=== PATIENT | female | born 1980 ===

== ENCOUNTER 2025-04-29 06:49 | Emergency (ER) | payer SELFPAY ==
--- NOTE | 2025-04-29 06:45 | DI.RAD_ITS ---
Exam(s) XR KNEE LT 4V AP,LAT,KWESI,PAT EXAM: XR KNEE LT 4V AP,LAT,KWESI,PAT CLINICAL HISTORY: L hip/knee pain after fall. TECHNIQUE: 2D digital imaging was performed. COMPARISON: No exams were available for comparison FINDINGS: Four views There is a significant fracture of the lateral tibial plateau with significant displacement/depression. Proximal fibula appears intact and there are no obvious fractures of the distal femur and femoral condyles. Patella appears intact and nondisplaced. Joint effusion-hemarthrosis IMPRESSION: Displaced tibial plateau fracture. Knee effusion-hemarthrosis DATA REPOSITORY: RADIATION DOSE DELIVERED:
--- NOTE | 2025-04-29 06:45 | DI.RAD_ITS ---
Exam(s) XR PELVIS AP EXAM: XR PELVIS AP CLINICAL HISTORY: L hip/knee pain after fall. TECHNIQUE: 2D digital imaging was performed. COMPARISON: No exams were available for comparison FINDINGS: Single AP view of the pelvis-hips No evidence of pelvic nor hip fractures. No dislocation. Bone density normal. No osseous lesions. IMPRESSION: No acute osseous findings. DATA REPOSITORY: RADIATION DOSE DELIVERED:
--- NOTE | 2025-04-29 06:45 | DI.RAD_ITS ---
Exam(s) XR TIB/FIB LT EXAM: XR TIB/FIB LT CLINICAL HISTORY: L hip/knee pain after fall. TECHNIQUE: 2D digital imaging was performed. COMPARISON: No exams were available for comparison FINDINGS: Two views There is a tibial plateau fracture with displacement. There are no other fractures evident in the tibia and fibula. No osseous lesions. IMPRESSION: Tibial plateau fracture DATA REPOSITORY: RADIATION DOSE DELIVERED:
--- NOTE | 2025-04-29 06:45 | DI.RAD_ITS ---
Exam(s) XR FEMUR LT EXAM: XR FEMUR LT CLINICAL HISTORY: L hip/knee pain after fall. TECHNIQUE: 2D digital imaging was performed. COMPARISON: No exams were available for comparison FINDINGS: 3 views No evidence of hip nor femur fracture. However, there is a knee joint effusion and there appears to be a tibial plateau fracture seen on the lateral view IMPRESSION: Fractured in the level appearing to be tibial plateau. Knee joint effusion-hemarthrosis. DATA REPOSITORY: RADIATION DOSE DELIVERED:
[2025-04-29 06:49] VITALS: BP 164/109; PULSE 69; RESP 22; TEMP 36.1; O2SAT 100
--- NOTE | 2025-04-29 07:06 | W.ED.GENAD ---
Discharge Plan Discharge Details Chief Complaint: Fall/Non TraumaCriteria Clinical Impression: Fall, Injury of left knee ED Provider: Venkatesh Pak General Date/Time Provider Initiated Documentation: 04/29/25 06:56. HPI Narrative: 44-year-old -[place] female with a past medical history of a hysterectomy, hypertension, presents today via EMS for evaluation after a fall. 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 She was about 4 feet off the ground when she slipped, she hit a van's bumper on the way down with her left knee. She did not strike her head. She did not lose consciousness. She had immediate and severe pain in the left hip and the left knee. EMS was called, she was given 100 mcg of fentanyl, and 20 mg of ketamine without significant improvement of her symptoms. She denies previous injuries to the extremities in the past. No other complaints at this time. She denies numbness or tingling. She denies headache, neck pain, chest pain or abdominal pain. Related Data Allergies Allergy/AdvReac Type Severity Reaction Status Date / Time acetaminophen Allergy Unknown Hives Verified 04/29/25 06:59 General Stated Complaint: Fall/Non TraumaCriteria TRINI: 3 Exam Narrative Exam Narrative: 1.Const: Well-nourished, Well-developed, appearing stated age 2.Eyes: PERRL, no conjunctival injection, and symmetrical lids. 3.ENT: Atraumatic external nose and ears. Moist MM. Neck: Symmetric, trachea midline, No thyromegaly. There is no evidence of raccoon eyes, shelley sign, CSF rhinorrhea, mastoid tenderness, cranial crepitus, exophthalmos, or hyphema. Patient demonstrates intact dentition with no signs of tooth avulsion or fracture, no signs of jaw deformity, no evidence of a LeFort's fracture, with an intact palate, nose and orbital region. There is no evidence of a nasal septal hematoma. No proptosis. Jaw closes symmetrically. Airway is clear. 4.CVS: Regular rate and rhythm, Normal s1 and s2. No murmurs, carotid bruits, rubs, or gallops. Radial pulses 2+ bilaterally and symmetric. Dorsalis pedis pulses 2+ bilaterally and symmetric. 2+ capillary refill. No evidence of distant heart sounds. No extremity edema. No evidence of gross hemorrhage. 5.RESP: Airway clear, no obstructions. No abrasions or ecchymosis. Chest movement symmetric with respirations. No chest wall tenderness. Trachea midline. No crepitus. No step offs. No paradoxical movements. Lungs are clear to auscultation bilaterally. No rales, rhonchi, wheezing or stridor. Breath sound symmetric. No Sucking chest wounds. No clinical evidence of significant chest trauma. 6.GI: Soft, Nontender/Nondistended, No hepatosplenomegaly. No guarding or rebound. 7.MSK: No gross deformities or discolorations or lesions. Range of motion notably limited in the left lower extremity, significant pain, examination is difficult because of this. No tenderness over the right hip knee maddox or foot. Patient has extreme tenderness over the left knee, mild tenderness over the left hip, and mild tenderness over the mid tib/fib. No ankle or foot tenderness on the left. Patient has sensation that is intact in the left lower extremity throughout, she has dorsalis pedis and posterior pulses that are +2 bilaterally. There is swelling over the knee itself, however she is keeping it bent at 90 degrees and the hip is flexed. Patient is unable or unwilling to move it at this time secondary to pain. All compartments of upper and lower extremities are otherwise soft with no tenderness (aside for the aforementioned left lower extremity). Vascular exam demonstrates brisk capillary refill and intact pulses in all extremities. Pelvic exam demonstrates a stable pelvis, 8.Skin: Warm, Dry. No rashes or lesions. 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 Sensation grossly intact, no focal neurologic deficits. 10.Psych: (AAO) x3. Appropriate mood and affect Course Vital Signs Vital signs: Vital Signs Temperature 36.1 C L 04/29/25 06:49 Pulse 69 04/29/25 06:49 Respiratory Rate 22 04/29/25 06:49 Blood Pressure 164/109 H 04/29/25 06:49 Pulse Oximetry 100 04/29/25 06:49 Temperature 36.1 C L 04/29/25 06:49 Temperature Source Oral 04/29/25 06:49 Pulse 69 04/29/25 06:49 Respiratory Rate 22 04/29/25 06:49 Blood Pressure 164/109 H 04/29/25 06:49 Blood Pressure Position Sitting 04/29/25 06:49 Pulse Oximetry 100 04/29/25 06:49 Oxygen Delivery Method Room Air 04/29/25 06:49 Oxygen Flow Rate 0 04/29/25 06:49 Pain Level 10 04/29/25 06:49 Medical Decision Making 44-year-old -[place] female with a past medical history of a hysterectomy, hypertension, presents today via EMS for evaluation after a fall. 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 She was about 4 feet off the ground when she slipped, she hit a van's bumper on the way down with her left knee. She did not strike her head. She did not lose consciousness. She had immediate and severe pain in the left hip and the left knee. EMS was called, she was given 100 mcg of fentanyl, and 20 mg of ketamine without significant improvement of her symptoms. She denies previous injuries to the extremities in the past. No other complaints at this time. She denies numbness or tingling. She denies headache, neck pain, chest pain or abdominal pain. Range of motion notably limited in the left lower extremity, significant pain, examination is difficult because of this. No tenderness over the right hip knee maddox or foot. Patient has extreme tenderness over the left knee, mild tenderness over the left hip, and mild tenderness over the mid tib/fib. No ankle or foot tenderness on the left. Patient has sensation that is intact in the left lower extremity throughout, she has dorsalis pedis and posterior pulses that are +2 bilaterally. There is swelling over the knee itself, however she is keeping it bent at 90 degrees and the hip is flexed. Patient is unable or unwilling to move it at this time secondary to pain. Differential includes left knee fracture, patellar fracture, hip fracture, or potential less likely dislocation. Will get x-rays, treat the patient's pain, monitor closely and reassess. Patient will be signed out to my colleague Dr. Delgadillo for follow-up on imaging. PFSH All Active Problems (Updated 04/29/25 @ 07:12 by Venkatesh Pak DO) Injury of left knee (Acute) Fall (Acute) Social History Smoking/Tobacco Use Status: Current every day Smoking risk assessment performed?: Yes Alcohol Intake: current Alcohol Intake frequency: a few times a month Alcohol type: hard liquor Drug use: Daily Substance use type: marijuana Housing: apartment Do you feel safe at home: Yes Do you feel safe in your relationship?: Yes
[2025-04-29] MEDS: Ketorolac 15 MG/ML VIAL IVP (07:13)
[2025-04-29] MEDS: HYDROmorphone 2 MG/ML SYR 1 MG IVP ×4 (07:14→12:03)
--- NOTE | 2025-04-29 08:30 | DI.CT_ITS ---
Exam(s) CT LOWER EXTREMITY LT WO EXAM: CT LOWER EXTREMITY LT WO CLINICAL HISTORY: tibial plat fx. TECHNIQUE: Imaging Protocol: Axial computed tomography images with coronal and sagittal reformatted images were created and reviewed. CONTRAST MATERIAL: Intravenous: Omnipaque 350 Contrast volume:structured data in ml Contrast route:IV - Oral: yes / no COMPARISON: No exams were available for comparison FINDINGS: OSSEOUS: There is a disc place comminuted depressed fracture of the lateral tibial plateau also involving the tibial spines. The largest fracture fragment measures approximately 3.5 x 1.8 cm and is depressed approximately 2 cm. The adjacent fibular head and neck appears intact but the articular surfaces on the tibial side of this articulation are significantly disrupted. There are no fractures in the femoral condyles SOFT TISSUES: Prominent joint effusion which is lipohemarthrosis IMPRESSION: There is a comminuted significantly displaced/depressed fracture of the lateral tibial plateau. Called to ER 04/29/2025 9:11 a.m. RADIATION DOSE DELIVERED: 174.69mGy.cm Total DLP DATA REPOSITORY: All CT scans at this facility are submitted to the National Radiology Data Registry (NRDR) Dose Index Registry (DIR) with the [employer] (A[employer]). RADIATION OPTIMIZATION: All CT scans at this facility use at least one of these dose optimization techniques: automated exposure control; mA and/or kV adjustment per patient size (includes targeted exams where dose is matched to clinical indication); or iterative reconstruction.
[2025-04-29 09:38] LABS: Abs Immature Grans 0.02 10^3/uL (0.0-0.06); HCT 42.4 % (36.0-46.0); HGB 13.7 g/dL (11.2-15.7); Immature Grans % 0.3 %; MCH 27.3 pg (27.0-33.0); MCHC 32.3 % (32.0-36.0); MCV 85 fL (80-95); MPV 9.6 fL (8.0-11.0); Platelet Count 236 10^3/uL (130-400); RBC 5.01 10^6/uL (3.93-5.22); RDW 13.3 % (11.7-14.6); RDW-SD 41.4 fL; WBC 6.95 10^3/uL (4.4-10.8)
[2025-04-29 10:02] LABS: ALT 34 U/L (14-59); AST 21 U/L (15-37); Albumin 3.6 g/dL (3.4-5.0); Alkaline Phosphatase 66 U/L (46-116); Anion Gap 10.8 mmol/L (3-11); BUN 10 mg/dL (7-18); Bilirubin, Total 0.2 mg/dL (0.2-1.0); CO2 23.2 mmol/L (21.0-32.0); Calcium 8.5 mg/dL (8.5-10.1); Chloride 106 mmol/L (98-107); Glucose 108 mg/dL (74-106); Potassium 4.2 mmol/L (3.5-5.1); Sodium 140 mmol/L (136-145); Total Protein 7.1 g/dL (6.4-8.2)
--- NOTE | 2025-04-29 10:58 | W.ED.GENAD ---
Discharge Plan Disposition Patient Disposition: Transfer-Acute Inpatient Care Specific Acute Inpt Facility: [facility] Condition: Serious Discharge Details Clinical Impression: Fall, Closed fracture of left tibial plateau Primary Care Provider: Unknown,Unknown ED Provider: Mau Delgadillo General Date/Time Provider Initiated Documentation: 04/29/25 06:56. Related Data Allergies Allergy/AdvReac Type Severity Reaction Status Date / Time acetaminophen Allergy Unknown Hives Verified 04/29/25 06:59 General Stated Complaint: Fall/Non TraumaCriteria TRINI: 3 Course Vital Signs Vital signs: Vital Signs Temperature 36.1 C L 04/29/25 06:49 Pulse 69 04/29/25 06:49 Respiratory Rate 22 04/29/25 06:49 Blood Pressure 164/109 H 04/29/25 06:49 Pulse Oximetry 100 04/29/25 06:49 Temperature 36.1 C L 04/29/25 06:49 Temperature Source Oral 04/29/25 06:49 Pulse 69 04/29/25 06:49 Respiratory Rate 22 04/29/25 06:49 Blood Pressure 164/109 H 04/29/25 06:49 Blood Pressure Position Sitting 04/29/25 06:49 Pulse Oximetry 100 04/29/25 06:49 Oxygen Delivery Method Room Air 04/29/25 06:49 Oxygen Flow Rate 0 04/29/25 06:49 Pain Level 9 04/29/25 10:36 Lab/Test Results Lab/Test Results: Laboratory Tests Range/Units 04/29/25 09:33 WBC (4.4-10.8) 10^3/uL 6.95 RBC (3.93-5.22) 10^6/uL 5.01 Hgb (11.2-15.7) g/dL 13.7 Hct (36.0-46.0) % 42.4 MCV (80-95) fL 85 MCH (27.0-33.0) pg 27.3 MCHC (32.0-36.0) % 32.3 RDW (11.7-14.6) % 13.3 Plt Count (130-400) 10^3/uL 236 MPV (8.0-11.0) fL 9.6 Immature Gran % % 0.3 Neutrophils % % 74.8 Lymphocytes % % 17.7 Monocytes % % 6.6 Eosinophils % % 0.3 Basophils % % 0.3 Nucleated RBC % (0.0-0.3) % 0.0 Absolute Neutrophils (1.2-6.7) 10^3/uL 5.20 Absolute Lymphocytes (1.2-3.4) 10^3/uL 1.23 Absolute Monocytes (0.1-0.8) 10^3/uL 0.46 Absolute Eosinophils (0.0-0.7) 10^3/uL 0.02 Absolute Basophils (0.0-0.2) 10^3/uL 0.02 Sodium (136-145) mmol/L 140 Potassium (3.5-5.1) mmol/L 4.2 Chloride (98-107) mmol/L 106 Carbon Dioxide (21.0-32.0) mmol/L 23.2 Anion Gap (3-11) mmol/L 10.8 BUN (7-18) mg/dL 10 Creatinine (0.55-1.02) mg/dL 0.7 Est GFR (CKD-EPI 2020) (mL/min/1.73m2) 109.98 Glucose (74-106) mg/dL 108 H Calcium (8.5-10.1) mg/dL 8.5 Total Bilirubin (0.2-1.0) mg/dL 0.2 AST (15-37) U/L 21 ALT (14-59) U/L 34 Alkaline Phosphatase (46-116) U/L 66 Total Protein (6.4-8.2) g/dL 7.1 Albumin (3.4-5.0) g/dL 3.6 Medical Decision Making -- Care signed out by Dr. Pak, please see his documentation regarding initial presentation and course. Patient has received multiple doses of analgesics. Plan to followup xray LLE. -- xray of the left knee, tib/fib, femur interpreted by radiology: Displaced tibial plateau fracture. Knee effusion-hemarthrosis. xray pelvis interpreted by radiology: No acute osseous findings. -- CT of the LLE interpreted by radiology: IMPRESSION: There is a comminuted significantly displaced/depressed fracture of the lateral tibial plateau. --Patient having recurrent, significant pain. I will give Dilaudid 1 mg IV. [id number] -- [facility] called and now noting no capacity, unable to accept the patient in transfer. Will call next closest appropriate facility [facility]. 11:05 -- I spoke with the [facility] transfer [facility] and Dr. Lacey Abarca, ED physician at [facility], they have accepted the patient in transfer without delay. Will send x-ray images and CT for review. Lab Data Lab results reviewed: Yes I reviewed the patient's lab results. Labs: Laboratory Tests Range/Units 04/29/25 09:33 WBC (4.4-10.8) 10^3/uL 6.95 RBC (3.93-5.22) 10^6/uL 5.01 Hgb (11.2-15.7) g/dL 13.7 Hct (36.0-46.0) % 42.4 MCV (80-95) fL 85 MCH (27.0-33.0) pg 27.3 MCHC (32.0-36.0) % 32.3 RDW (11.7-14.6) % 13.3 Plt Count (130-400) 10^3/uL 236 MPV (8.0-11.0) fL 9.6 Immature Gran % % 0.3 Neutrophils % % 74.8 Lymphocytes % % 17.7 Monocytes % % 6.6 Eosinophils % % 0.3 Basophils % % 0.3 Nucleated RBC % (0.0-0.3) % 0.0 Absolute Neutrophils (1.2-6.7) 10^3/uL 5.20 Absolute Lymphocytes (1.2-3.4) 10^3/uL 1.23 Absolute Monocytes (0.1-0.8) 10^3/uL 0.46 Absolute Eosinophils (0.0-0.7) 10^3/uL 0.02 Absolute Basophils (0.0-0.2) 10^3/uL 0.02 Sodium (136-145) mmol/L 140 Potassium (3.5-5.1) mmol/L 4.2 Chloride (98-107) mmol/L 106 Carbon Dioxide (21.0-32.0) mmol/L 23.2 Anion Gap (3-11) mmol/L 10.8 BUN (7-18) mg/dL 10 Creatinine (0.55-1.02) mg/dL 0.7 Est GFR (CKD-EPI 2020) (mL/min/1.73m2) 109.98 Glucose (74-106) mg/dL 108 H Calcium (8.5-10.1) mg/dL 8.5 Total Bilirubin (0.2-1.0) mg/dL 0.2 AST (15-37) U/L 21 ALT (14-59) U/L 34 Alkaline Phosphatase (46-116) U/L 66 Total Protein (6.4-8.2) g/dL 7.1 Albumin (3.4-5.0) g/dL 3.6 PFSH All Active Problems (Updated 04/29/25 @ 11:08 by Mau Delgadillo MD) Closed fracture of left tibial plateau (Acute) Fall (Acute) Social History Smoking/Tobacco Use Status: Current every day Smoking risk assessment performed?: Yes Alcohol Intake: current Alcohol Intake frequency: a few times a month Alcohol type: hard liquor Drug use: Daily Substance use type: marijuana Housing: apartment Do you feel safe at home: Yes Do you feel safe in your relationship?: Yes
--- NOTE | 2025-05-05 07:47 | W.EDPROG ---
Date of service: 04/29/25 Time of Service: 12:00 Medical Decision Making 800 --care was signed out by Dr. Pak, please see his documentation regarding initial ED presentation and course. Plan at signout is to follow-up on imaging and reassess patient for disposition. -- X-ray of the knee and femur interpreted by radiology: Please report, Displaced tibial plateau fracture. Knee effusion-hemarthrosis Spoke with orthopedics, Dr. Hernandez who recommends CT imaging and transfer for higher level of care. CT of the lower extremity interpreted by radiology: There is a comminuted significantly displaced/depressed fracture of the lateral tibial plateau. I called and spoke with [facility] transfer center, [facility] at capacity unable to accept patient. I called and spoke with [facility] transfer center, [facility] will accept patient in transfer ED to ED. Patient consented to transfer. Patient was given Dilaudid IV for pain. Discharge Plan Disposition Patient Disposition: Transfer-Acute Inpatient Care Specific Acute In Facility: [facility] Condition: Serious Discharge Details Clinical Impression: Fall, Closed fracture of left tibial plateau Primary Care Provider: Unknown,Unknown ED Provider: Mau Delgadillo Discharge Data Discharge Date/Time-TO BE ENTERED AT DEPARTURE: 04/29/25 12:30
== END 2025-04-29 12:30 | disposition short-term general hospital (02) ==
PROVIDERS: Student in an Organized Health Care Education/Training Program; Emergency Provider Student in an Organized Health Care Education/Training Program
DX: S82.142A Displaced bicondylar fracture of left tibia, initial encounter for closed fracture (principal); W17.89XA Other fall from one level to another, initial encounter
CPT/HCPCS: 00123; 73552; 80053; 96374; 96375; 96376; 99285; 72170; 73564; 73590; 73700; 85025; J1171; J1885